=== PATIENT | female | born 1965 | race Caucasian/White ===

== ENCOUNTER 2017-08-28 01:47 | Emergency (ER) | payer OTHER ==
[~2017-08-28] VITALS: Ht 152.4 cm; Wt 48.0 kg
[~2017-08-28 01:47] MED LIST: ENTEX PO; LORT7.5T3 PO; PRED20 PO; ZITH250T PO
[2017-08-28 01:52] VITALS: BP 119/67; PULSE 107; RESP 18; TEMP 99; O2SAT 99
== END 2017-08-28 05:00 | disposition left against medical advice (07) ==
LOC: NED 01:47
DX: R10.9 Unspecified abdominal pain (principal)
CPT/HCPCS: 99281

== ENCOUNTER 2017-09-16 21:08 | Inpatient (IN) | payer BC, OTHER ==
[~2017-09-16] VITALS: Ht 152.4 cm; Wt 48.7 kg
[2017-09-16 21:15] VITALS: BP 104/51; PULSE 94; RESP 24; TEMP 100.3; O2SAT 98
[2017-09-16] MEDS ORDERED: METR250 PO (21:23)
[2017-09-16] MEDS ORDERED: LACTCAP8 PO (21:23)
--- NOTE | 2017-09-16 21:37 | PD ---
HPI Chief Complaint: GI Complaint Time Seen by Provider: 21:25 Travel History International Travel<30 days: No Contact w/Intl Traveler<30days: No Traveled to known affect area: No History of Present Illness HPI 51yo F here with persistent abdominal pain. Pt said she was at [facility] 3 weeks ago and she was diagnosed with diverticulitis. She was sent home with metronidazole. Pt was not able to tolerate it and keeps vomiting so went to PMD's office. Pt was told to cut metronidazole 500mg to 250mg and has been trying to take it last 3 days. However, she is still nauseous and vomiting. No documented fever but has chills. +Nonbloody diarrhea. Said it is just like water. Denies any chest pain, sob, dysuria, hematuria, focal weakness or numbness. Denies any abdominal surgeries. 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) Diverticulitis: Yes Tetanus Vaccination: < 5 Years Influenza Vaccination: No ?: Not LMP: 09/02/17 : 2 Para: 2 Ovarian Cysts: Yes Tubal Ligation: Yes Past Surgical History Tonsillectomy: Yes Social History Alcohol Use: No Tobacco Use: No Substance Use: No Allergies-Medications (Allergen,Severity, Reaction): Coded Allergies: No Known Allergies (Unverified , 09/16/17) Reported Meds & Prescriptions Reported Meds & Active Scripts Active Reported Probiotic (Lactobacillus Acidophilus) 10 Billion Cell Cap 1 Cap PO TIDAC Flagyl (Metronidazole) 250 Mg Tab 250 Mg PO TID Review of Systems Except as stated in HPI: all other systems reviewed are Neg Physical Exam Narrative GENERAL: 51yo F in moderate distress. SKIN: Focused skin assessment warm/dry. HEAD: Atraumatic. Normocephalic. EYES: Pupils equal and round. No scleral icterus. No injection or drainage. ENT: No nasal bleeding or discharge. Mucous membranes pink and moist. NECK: Trachea midline. No JVD. CARDIOVASCULAR: Regular rate and rhythm. No murmur appreciated. RESPIRATORY: No accessory muscle use. Clear to auscultation. Breath sounds equal bilaterally. GASTROINTESTINAL: Abdomen soft, +Tenderness diffusely. MUSCULOSKELETAL: No obvious deformities. No clubbing. No cyanosis. No edema. NEUROLOGICAL: Awake and alert. No obvious cranial nerve deficits. Motor grossly within normal limits. Normal speech. PSYCHIATRIC: Appropriate mood and affect; insight and judgment normal. Data Data Last Documented VS Vital Signs Date Time Temp Pulse Resp B/P (MAP) Pulse Ox O2 Delivery O2 Flow Rate FiO2 09/16/17 22:06 82 18 99/51 (67) 98 Room Air 09/16/17 21:15 100.3 Orders Orders Complete Blood Count With Diff (09/16/17 21:34) Comprehensive Metabolic Panel (09/16/17 21:34) Lipase (09/16/17 21:34) Urinalysis - C+S If Indicated (09/16/17 21:34) Ct Abd/Pel W Iv Contrast(Rout) (09/16/17 21:34) Morphine Inj (Morphine Inj) (09/16/17 21:45) Ondansetron Inj (Zofran Inj) (09/16/17 21:45) Ed Urine Pregnancytest Poc (09/16/17 21:34) Blood Culture (09/16/17 21:37) Lactic Acid Sepsis Protocol (09/16/17 21:37) Sodium Chlor 0.9% 1000 Ml Inj (Ns 1000 M (09/16/17 21:45) Iohexol 350 Inj (Omnipaque 350 Inj) (09/16/17 22:19) Urine Culture (09/16/17 21:50) Ceftriaxone Inj (Rocephin Inj) (09/16/17 22:45) Sodium Chlor 0.9% 1000 Ml Inj (Ns 1000 M (09/16/17 22:45) Labs Laboratory Tests Test 09/16/17 21:40 09/16/17 21:50 White Blood Count 17.2 TH/MM3 Red Blood Count 4.07 MIL/MM3 Hemoglobin 11.4 GM/DL Hematocrit 34.2 % Mean Corpuscular Volume 83.9 FL Mean Corpuscular Hemoglobin 28.0 PG Mean Corpuscular Hemoglobin Concent 33.4 % Red Cell Distribution Width 12.9 % Platelet Count 441 TH/MM3 Mean Platelet Volume 7.9 FL Neutrophils (%) (Auto) 78.3 % Lymphocytes (%) (Auto) 12.0 % Monocytes (%) (Auto) 8.6 % Eosinophils (%) (Auto) 0.4 % Basophils (%) (Auto) 0.7 % Neutrophils # (Auto) 13.4 TH/MM3 Lymphocytes # (Auto) 2.1 TH/MM3 Monocytes # (Auto) 1.5 TH/MM3 Eosinophils # (Auto) 0.1 TH/MM3 Basophils # (Auto) 0.1 TH/MM3 CBC Comment DIFF FINAL Differential Comment Blood Urea Nitrogen 11 MG/DL Creatinine 0.50 MG/DL Random Glucose 100 MG/DL Total Protein 7.7 GM/DL Albumin 2.9 GM/DL Calcium Level 8.5 MG/DL Alkaline Phosphatase 119 U/L Aspartate Amino Transf (AST/SGOT) 9 U/L Alanine Aminotransferase (ALT/SGPT) 7 U/L Total Bilirubin 0.3 MG/DL Sodium Level 134 MEQ/L Potassium Level 3.7 MEQ/L Chloride Level 99 MEQ/L Carbon Dioxide Level 26.4 MEQ/L Anion Gap 9 MEQ/L Estimat Glomerular Filtration Rate 131 ML/MIN Lactic Acid Level 0.9 mmol/L Lipase 132 U/L Urine Collection Type CLEAN CATCH Urine Color YELLOW Urine Turbidity SL CLOUDY Urine pH 6.0 Urine Specific [place] 1.025 Urine Protein NEG mg/dL Urine Glucose (UA) NEG mg/dL Urine Ketones 15 mg/dL Urine Occult Blood LARGE Urine Nitrite NEG Urine Bilirubin NEG Urine Urobilinogen 0.2 MG/DL Urine Leukocyte Esterase TRACE Urine RBC 4-9 /hpf Urine WBC 3-5 /hpf Urine WBC Clumps OCC Urine Squamous Epithelial Cells 0-5 /hpf Urine Bacteria OCC /hpf Urine Mucus MOD /lpf Microscopic Urinalysis Comment CULTURE INDICATED MDM Medical Decision Making Medical Screen Exam Complete: Yes Emergency Medical Condition: Yes Differential Diagnosis Diverticulitis vs. abscess vs. perforation vs. UTI Narrative Course 51yo F with lower abdominal pain and nausea and vomiting. Temp is 100.3F here with HR of 94bpm. Labs reviewed, leukocytosis at 17.2. Lactic acid normal at 0.9. CMP unremarkable. Lipase normal. UA showed large blood. Occasional WBC clumps, culture indicated. CT a/p showed moderate solid stool. No free air, free fluid or abscess. Multiple diverticuli without diverticulitis. Pt given ceftriaxone, NS IVF, morphine and zofran. Pt reevaluated at bedside and pain has improved. Still very tender in suprapubic region. Discussed with Dr. Sutherland and accepted to her service. Diagnosis Primary Impression: UTI (urinary tract infection) Qualified Codes: N39.0 - Urinary tract infection, site not specified; R31.9 - Hematuria, unspecified Admitting Information Admitting Physician Requests: it Petra Arriaga DO Sep 16, 2017 21:37
[2017-09-16] MEDS ORDERED: ONDANSETRON HCL 4 MG/2 ML VIAL IVP ONE (21:45)
[2017-09-16] MEDS ORDERED: MORPHINE SULFATE 4 MG/ML INJ IV PUSH ONE (21:45)
[2017-09-16] MEDS ORDERED: SODIUM CHLOR 0.9% 1000 ML INJ 1,000 ML IV ONE ×2 (21:45→22:45)
[2017-09-16 22:02] LABS: AUTOMATED NEUTROPHIL # 13.4 TH/MM3 (1.8-7.7); BASOPHIL # 0.1 TH/MM3 (0-0.2); BASOPHIL % 0.7 % (0.0-2.0); EOSINOPHIL # 0.1 TH/MM3 (0-0.4); EOSINOPHIL % 0.4 % (0.0-4.0); HEMATOCRIT 34.2 % (35.0-46.0); HEMOGLOBIN 11.4 GM/DL (11.6-15.3); LYMPHOCYTE # 2.1 TH/MM3 (1.0-4.8); MEAN CELL VOLUME 83.9 FL (80.0-100.0); MEAN CORPUSCULAR HGB CONC 33.4 % (32.0-36.0); MEAN PLATELET VOLUME 7.9 FL (7.0-11.0); MONO % 8.6 % (0.0-8.0); MONOCYTE # 1.5 TH/MM3 (0-0.9); NEUT % 78.3 % (16.0-70.0); PLATELET COUNT 441 TH/MM3 (150-450); RED BLOOD COUNT 4.07 MIL/MM3 (4.00-5.30); RED CELL DISTRIBUTION WIDTH 12.9 % (11.6-17.2); WHITE BLOOD COUNT 17.2 TH/MM3 (4.0-11.0)
[2017-09-16 22:06] VITALS: BP 99/51; PULSE 82; RESP 18; O2SAT 98
[2017-09-16 22:14] LABS: BILIRUBIN, URINE NEG (NEG); BLOOD, URINE LARGE (NEG); GLUCOSE,URINE NEG (NEG); KETONE, URINE 15 mg/dL (NEG); NITRITE,URINE NEG (NEG); URINE COLOR YELLOW (YELLW/STRAW); URINE LEUKOCYTE ESTERASE TRACE (NEG)
[2017-09-16 22:16] LABS: CHLORIDE 99 MEQ/L (98-107); SODIUM (NA) 134 MEQ/L (136-145)
[2017-09-16 22:18] LABS: ALBUMIN 2.9 GM/DL (3.4-5.0); CALCIUM 8.5 MG/DL (8.5-10.1)
[2017-09-16 22:19] LABS: BICARBONATE 26.4 MEQ/L (21.0-32.0); BLOOD UREA NITROGEN 11 MG/DL (7-18); GLUCOSE,RANDOM 100 MG/DL (74-106)
[2017-09-16] MEDS ORDERED: IOHEXOL 350 MG/ML 10 ML VIAL (for RAD DIAG) IVCONTRAST ONE (22:19)
[2017-09-16 22:22] LABS: ALT (GPT) 7 U/L (10-53); AST (GOT) 9 U/L (15-37); GLOMERULAR FILTRATION RATE 131 ML/MIN (>89)
[2017-09-16 22:23] LABS: TOTAL BILIRUBIN ADULT 0.3 MG/DL (0.2-1.0); TOTAL PROTEIN 7.7 GM/DL (6.4-8.2)
[2017-09-16 22:25] LABS: ALKALINE PHOSPHATASE 119 U/L (45-117)
[2017-09-16 22:26] LABS: MUCUS URINE MOD /lpf (OCC); SQUAMOUS EPITHELIAL CELL URINE 0-5 /hpf (0-5)
[2017-09-16 22:27] LABS: BACTERIA, URINE OCC /hpf
[2017-09-16 22:29] LABS: WHITE BLOOD CELL CLUMPS OCC
--- NOTE | 2017-09-16 22:31 | RADRPT ---
EXAM DATE/TIME: 09/16/2017 22:13 [place] COMPARISON: No previous studies available for comparison. INDICATIONS : Bilateral lower quadrant pain. IV CONTRAST: 100 cc Omnipaque 350 (iohexol) IV ORAL CONTRAST: No oral contrast ingested. RADIATION DOSE: 4.55 CTDIvol (mGy) MEDICAL HISTORY : Diverticulitis. SURGICAL HISTORY : Tubal ligation. ENCOUNTER: Initial ACUITY: 1 day PAIN SCALE: 10/10 LOCATION: Bilateral lower quadrant TECHNIQUE: Volumetric scanning of the abdomen and pelvis was performed. Using automated exposure control and ad justment of the mA and/or kV according to patient size, radiation dose was kept as low as reasonably achievable to obtain optimal diagnostic quality images. DICOM format image data is available electro nically for review and comparison. FINDINGS: Lower lungs are clear 8 mm cyst dome of the liver Minimal diffuse inhomogeneous adjacent of fat in falciform ligament, probably focal fatty sparing The spleen, pancreas and adrenal glands are unremarkable Symmetric renal function no renal mass Large amount of stool is seen throughout the cecum, ascending, transverse and descending colon. In the pelvis liquid stool is seen in the rectum. There is small bowel loops in the pelvis of uncert ain significance. There multiple diverticuli in the sigmoid colon without diverticulitis There is no free air or obstruction. Review of bone windows reveals only mild degenerative changes. CONCLUSION: Moderate solid stool throughout the ascending and descending colon Liquid stool in the rectum with matted small bowel loops in the pelvis associated with diverticuliti in the sigmoid colon. Don't see free air, free fluid or abscess. Rogelio Reilly MD FACR on September 16, 2017 at 22:24 Board Certified Radiologist. This report was verified electronically.
[2017-09-16] MEDS ORDERED: MAGNESIUM HYDROXIDE SUSP 30 ML CUP PO PRN (22:45)
[2017-09-16] MEDS ORDERED: ACETAMINOPHEN/HYDROcodone 325 MG/5 MG TAB PO PRN (22:45)
[2017-09-16] MEDS ORDERED: ONDANSETRON HCL 4 MG/2 ML VIAL IVP PRN (22:45)
[2017-09-16] MEDS ORDERED: LACTULOSE SYRUP 20 GM/30 ML CUP PO PRN (22:45)
[2017-09-16] MEDS ORDERED: BISACODYL 10 MG SUPP RECTAL PRN (22:45)
[2017-09-16] MEDS ORDERED: ACETAMINOPHEN 325 MG TAB PO PRN (22:45)
[2017-09-16] MEDS ORDERED: SENNOSIDES 8.6 MG TAB PO PRN (22:45)
[2017-09-16] MEDS ORDERED: cefTRIAXone INJ 1,000 MG in SODIUM CHLORIDE 0.9% INJ 100 ML IV ONE (22:45)
[2017-09-16] MEDS ORDERED: SODIUM CHLORIDE 0.9% FLUSH 10 ML FLUSH IV FLUSH PRN (22:45)
[2017-09-17] VITALS (7 sets, daily range): BP systolic 88–99; BP diastolic 53–62; PULSE 62–80; RESP 14–20; TEMP 96.2–98.6; O2SAT 95–99
[2017-09-17] MEDS: SODIUM CHLOR 0.9% 1000 ML INJ 1,000 ML IV SCH ×3 (00:33→18:23)
[2017-09-17] MEDS: MORPHINE SULFATE 2 MG/ML INJ IV PUSH PRN ×2 (01:41→07:43)
[2017-09-17] MEDS: PIPERACIL-TAZO 4.5 GM PREMIX 100 ML IV SCH ×3 (06:07→18:04)
[2017-09-17 06:29] LABS: AUTOMATED NEUTROPHIL # 12.1 TH/MM3 (1.8-7.7); BASOPHIL # 0.1 TH/MM3 (0-0.2); BASOPHIL % 0.4 % (0.0-2.0); EOSINOPHIL # 0.1 TH/MM3 (0-0.4); EOSINOPHIL % 0.5 % (0.0-4.0); HEMATOCRIT 29.1 % (35.0-46.0); HEMOGLOBIN 9.6 GM/DL (11.6-15.3); LYMPH % 11.6 % (9.0-44.0); LYMPHOCYTE # 1.8 TH/MM3 (1.0-4.8); MEAN CELL VOLUME 82.9 FL (80.0-100.0); MEAN CORPUSCULAR HEMOGLOBIN 27.3 PG (27.0-34.0); MEAN CORPUSCULAR HGB CONC 32.9 % (32.0-36.0); MONO % 9.9 % (0.0-8.0); MONOCYTE # 1.6 TH/MM3 (0-0.9); NEUT % 77.6 % (16.0-70.0); PLATELET COUNT 382 TH/MM3 (150-450); RED BLOOD COUNT 3.51 MIL/MM3 (4.00-5.30); RED CELL DISTRIBUTION WIDTH 13.2 % (11.6-17.2); WHITE BLOOD COUNT 15.7 TH/MM3 (4.0-11.0)
[2017-09-17 06:41] LABS: CHLORIDE 104 MEQ/L (98-107); SODIUM (NA) 136 MEQ/L (136-145)
[2017-09-17 07:13] LABS: ALBUMIN 2.2 GM/DL (3.4-5.0); ALKALINE PHOSPHATASE 77 U/L (45-117); ALT (GPT) LESS THAN 6 U/L (10-53); AST (GOT) 7 U/L (15-37); BICARBONATE 24.4 MEQ/L (21.0-32.0); BLOOD UREA NITROGEN 7 MG/DL (7-18); CALCIUM 7.4 MG/DL (8.5-10.1); CALCIUM-PROTEIN CORRECTED 8.1 MG/DL (8.5-10.1); CREATININE 0.36 MG/DL (0.50-1.00); GLOMERULAR FILTRATION RATE 191 ML/MIN (>89); GLUCOSE,RANDOM 98 MG/DL (74-106); TOTAL BILIRUBIN ADULT 0.2 MG/DL (0.2-1.0); TOTAL PROTEIN 5.8 GM/DL (6.4-8.2)
[2017-09-17] MEDS: DOCUSATE SODIUM 50 MG/SENNA 8.6 MG TAB PO SCH ×2 (08:57→21:00)
[2017-09-17] MEDS: SODIUM CHLORIDE 0.9% FLUSH 10 ML FLUSH IV FLUSH SCH ×2 (09:00→22:02)
--- NOTE | 2017-09-17 09:47 | HHI.HP ---
HPI Service [facility] Primary Care Physician Rodríguez Davis D.O. Admission Diagnosis UTI Diagnoses: (1) Leucocytosis Diagnosis: Principal (2) Urinary tract infection Diagnosis: Principal (3) Diarrhea in adult patient Diagnosis: Principal Chief Complaint: Nausea, vomiting, diarrhea Travel History International Travel<30 Days: No Contact w/Intl Traveler <30 Da: No Traveled to Known Affected Are: No Sepsis Criteria SIRS Criteria (2 or more): WBC > 97592, < 4000 or > 10% bands History of Present Illness 51-year-old female with no chronic medical illnesses who presented to the hospital for evaluation of 2 day history of nausea, vomiting, diarrhea, abdominal pain. Patient states that 2 weeks ago she went to [facility] and was diagnosed with diverticulitis and was treated with Flagyl. Patient takes medication as directed, however 2 days ago she started developing nausea with vomiting. She had diarrhea with watery stool and now green coloration. She states that her abdominal pain has significantly worse that forced her to come to the ER for evaluation. Patient had workup done in emergency department found to have signs of dehydration, leukocytosis, urinary tract infection. Because of those reasons it was recommended that the patient be admitted for further evaluation and management. Upon evaluating patient she is lying in bed comfortably. Does have lower abdominal tenderness. She indicates that she continues to have diarrhea up to 10 times a day which was watery and now has turned a green color. Review of Systems Gastrointestinal: COMPLAINS OF: Abdominal pain, Diarrhea, Nausea, Vomiting Except as stated in HPI: all other systems reviewed are Neg Past Family Social History Past Medical History No chronic medical illnesses Past Surgical History Tonsillectomy Tubal ligation Reported Medications Reported Meds & Active Scripts Active Reported Probiotic (Lactobacillus Acidophilus) 10 Billion Cell Cap 1 Cap PO TIDAC Flagyl (Metronidazole) 250 Mg Tab 250 Mg PO TID Allergies: Coded Allergies: No Known Allergies (Unverified , 09/16/17) Family History Reviewed and unremarkable for any heart disease, lung disease, kidney disease, cancer, seizures, stroke Social History Patient denies any tobacco, alcohol or illicit drug Physical Exam Vital Signs Vital Signs Date Time Temp Pulse Resp B/P (MAP) Pulse Ox O2 Delivery O2 Flow Rate FiO2 09/17/17 08:30 97.6 64 16 88/54 (65) 96 09/17/17 08:25 09/17/17 07:15 78 14 99/60 (73) 95 Room Air 09/17/17 05:55 98.6 80 16 90/53 (65) 96 Room Air 09/17/17 01:35 98.4 78 16 96/54 (68) 96 Room Air 09/16/17 22:06 82 18 99/51 (67) 98 Room Air 09/16/17 21:15 100.3 94 24 104/51 (68) 98 Physical Exam GENERAL: Well-developed, well-nourished, in no acute distress. alert and orientated HEENT: Head is normocephalic without any lesions or masses noted. Facial features are symmetric. Eyes: Pupils equal round reactive to light. Extraocular muscles are intact. Conjunctivae were clear. Oropharyngeal: Pharynx without any erythema edema. Tongue is midline without deviation. Buccal mucosa is moist without any masses or lesions NECK: Supple without any masses. Trachea midline no deviation. No JVD, no bruits are appreciated CARDIAC: Regular rhythm, regular rate. S1/S2 are heard. No murmurs gallops or rubs. LUNGS: Clear to auscultation bilaterally. No wheeze, rhonchi or rales. No use of accessory muscles on inspiration or expiration. ABDOMEN: Soft, bilateral lower abdominal pain, suprapubic pain nondistended. Bowel sounds heard in all 4 quadrants. No organomegaly or masses. Negative rebound, negative guarding EXTREMITIES: No edema, pulses are equal bilaterally. No cyanosis or clubbing NEUROLOGY: Mood and affect appear appropriate. Cranial nerves II through XII grossly intact. Muscle strength 5/5 in upper and lower extremities bilaterally. Deep tendon reflexes are 2+ in upper and lower extremities bilaterally. Laboratory Laboratory Tests Test 09/16/17 21:40 09/16/17 21:50 09/17/17 05:58 White Blood Count 17.2 15.7 Red Blood Count 4.07 3.51 Hemoglobin 11.4 9.6 Hematocrit 34.2 29.1 Mean Corpuscular Volume 83.9 82.9 Mean Corpuscular Hemoglobin 28.0 27.3 Mean Corpuscular Hemoglobin Concent 33.4 32.9 Red Cell Distribution Width 12.9 13.2 Platelet Count 441 382 Mean Platelet Volume 7.9 8.0 Neutrophils (%) (Auto) 78.3 77.6 Lymphocytes (%) (Auto) 12.0 11.6 Monocytes (%) (Auto) 8.6 9.9 Eosinophils (%) (Auto) 0.4 0.5 Basophils (%) (Auto) 0.7 0.4 Neutrophils # (Auto) 13.4 12.1 Lymphocytes # (Auto) 2.1 1.8 Monocytes # (Auto) 1.5 1.6 Eosinophils # (Auto) 0.1 0.1 Basophils # (Auto) 0.1 0.1 CBC Comment DIFF FINAL DIFF FINAL Differential Comment Blood Urea Nitrogen 11 7 Creatinine 0.50 0.36 Random Glucose 100 98 Total Protein 7.7 5.8 Albumin 2.9 2.2 Calcium Level 8.5 7.4 Alkaline Phosphatase 119 77 Aspartate Amino Transf (AST/SGOT) 9 7 Alanine Aminotransferase (ALT/SGPT) 7 LESS THAN 6 Total Bilirubin 0.3 0.2 Sodium Level 134 136 Potassium Level 3.7 3.6 Chloride Level 99 104 Carbon Dioxide Level 26.4 24.4 Anion Gap 9 8 Estimat Glomerular Filtration Rate 131 191 Lactic Acid Level 0.9 Lipase 132 Urine Collection Type CLEAN CATCH Urine Color YELLOW Urine Turbidity SL CLOUDY Urine pH 6.0 Urine Specific [place] 1.025 Urine Protein NEG Urine Glucose (UA) NEG Urine Ketones 15 Urine Occult Blood LARGE Urine Nitrite NEG Urine Bilirubin NEG Urine Urobilinogen 0.2 Urine Leukocyte Esterase TRACE Urine RBC 4-9 Urine WBC 3-5 Urine WBC Clumps OCC Urine Squamous Epithelial Cells 0-5 Urine Bacteria OCC Urine Mucus MOD Microscopic Urinalysis Comment CULTURE INDICATED Protein Corrected Calcium 8.1 Date/Time Source Procedure Growth Status 09/16/17 21:45 Blood Peripheral Aerobic Blood Culture Pending Received 09/16/17 21:45 Blood Peripheral Anaerobic Blood Culture Pending Received 09/16/17 21:50 Urine Clean Catch Urine Culture Pending Received Result Diagram: 09/17/17 0558 09/17/17 0558 Caprini VTE Risk Assessment Caprini VTE Risk Assessment: No/Low Risk (score <= 1) Caprini Risk Assessment Model Point Value = 1 Point Value = 2 Point Value = 3 Point Value = 5 Age 41-60 Minor surgery BMI > 25 kg/m2 Swollen legs Varicose veins or History of unexplained or recurrent spontaneous Oral contraceptives or hormone replacement Sepsis (< 1 month) Serious lung disease, including pneumonia (< 1 month) Abnormal pulmonary function Acute myocardial infarction Congestive heart failure (< 1 month) History of inflammatory bowel disease Medical patient at bed rest Age 61-74 Arthroscopic surgery Major open surgery (> 45 min) Laparoscopic surgery (> 45 min) Malignancy Confined to bed (> 72 hours) Immobilizing plaster cast Central venous access Age >= 75 History of VTE Family history of VTE Factor V Leiden Prothrombin [id number] Lupus anticoagulant Anticardiolipin antibodies Elevated serum homocysteine Heparin-induced thrombocytopenia Other congenital or acquired thrombophilia Stroke (< 1 month) Elective arthroplasty Hip, pelvis, or leg fracture Acute spinal cord injury (< 1 month) Prophylaxis Regimen Total Risk Factor Score Risk Level Prophylaxis Regimen 0-1 Low Early ambulation 2 Moderate Order ONE of the following: *Sequential Compression Device (SCD) *Heparin 5000 units SQ BID 3-4 Higher Order ONE of the following medications: *Heparin 5000 units SQ TID *Enoxaparin/Lovenox 40 mg SQ daily (WT < 150 kg, CrCl > 30 mL/min) *Enoxaparin/Lovenox 30 mg SQ daily (WT < 150 kg, CrCl > 10-29 mL/min) *Enoxaparin/Lovenox 30 mg SQ BID (WT < 150 kg, CrCl > 30 mL/min) AND/OR *Sequential Compression Device (SCD) 5 or more Highest Order ONE of the following medications: *Heparin 5000 units SQ TID (Preferred with Epidurals) *Enoxaparin/Lovenox 40 mg SQ daily (WT < 150 kg, CrCl > 30 mL/min) *Enoxaparin/Lovenox 30 mg SQ daily (WT < 150 kg, CrCl > 10-29 mL/min) *Enoxaparin/Lovenox 30 mg SQ BID (WT < 150 kg, CrCl > 30 mL/min) AND *Sequential Compression Device (SCD) Assessment and Plan Assessment and Plan Gastroenteritis Patient with presenting nausea, vomiting, worsening diarrhea with abdominal pain Possibly could be partially secondary to p.o. Flagyl. However workup still needs to be performed to evaluate other causes Continue IV fluids Obtain stool studies, C. difficile, enteric pathogen, rotavirus, WBC Urinary tract infection Urinalysis does indicate a trace of leukocytes, trace bacteria, however does have 0-5 epithelial cells which could indicate contamination Continue antibiotics until culture reports can be obtained for appropriate antibiotics Leukocytosis Could be reactive versus secondary to infection Continue monitor CBC Acute anemia Hemoglobin dropped from 11.4--> 9.6 Likely secondary to concentration from dehydration Continue monitor hemoglobin and hematocrit DVT prevention Low risk, early ambulation Physician Certification 2 Midnight Certification Type: Admission for Inpatient Services Order for Inpatient Services The services are ordered in accordance with Medicare regulations or non- Medicare payer requirements, as applicable. In the case of services not specified as inpatient-only, they are appropriately provided as inpatient services in accordance with the 2-midnight benchmark. Estimated LOS (days): 2 days is the estimated time the patient will need to remain in the hospital, assuming treatment plan goals are met and no additional complications. Post-Hospital Plan: Not yet determined Vernon Barker Sep 17, 2017 09:47
[2017-09-17] MEDS ORDERED: ACETAMINOPHEN/HYDROcodone 325 MG/5 MG TAB PO PRN (10:00)
[2017-09-17] MEDS ORDERED: MORPHINE SULFATE 2 MG/ML INJ IV PUSH PRN (10:00)
[2017-09-17] MEDS: ACETAMINOPHEN/HYDROcodone 325 MG/7.5 MG TAB PO PRN ×2 (16:16→22:10)
[2017-09-18] VITALS: BP 100/58; PULSE 63; RESP 20; TEMP 97.2; O2SAT 97
[2017-09-18] MEDS: PIPERACIL-TAZO 4.5 GM PREMIX 100 ML IV SCH ×2 (00:38→05:47)
[2017-09-18] MEDS: SODIUM CHLOR 0.9% 1000 ML INJ 1,000 ML IV SCH (00:40)
[2017-09-18 04:00] VITALS: BP 109/60; PULSE 65; RESP 18; TEMP 97.7; O2SAT 96
[2017-09-18 06:38] LABS: AUTOMATED NEUTROPHIL # 6.2 TH/MM3 (1.8-7.7); BASOPHIL # 0.1 TH/MM3 (0-0.2); BASOPHIL % 0.7 % (0.0-2.0); EOSINOPHIL # 0.1 TH/MM3 (0-0.4); EOSINOPHIL % 1.6 % (0.0-4.0); HEMATOCRIT 30.4 % (35.0-46.0); LYMPH % 17.2 % (9.0-44.0); LYMPHOCYTE # 1.4 TH/MM3 (1.0-4.8); MEAN CELL VOLUME 85.1 FL (80.0-100.0); MEAN CORPUSCULAR HGB CONC 32.9 % (32.0-36.0); MEAN PLATELET VOLUME 8.1 FL (7.0-11.0); MONO % 5.9 % (0.0-8.0); MONOCYTE # 0.5 TH/MM3 (0-0.9); NEUT % 74.6 % (16.0-70.0); PLATELET COUNT 372 TH/MM3 (150-450); RED BLOOD COUNT 3.58 MIL/MM3 (4.00-5.30); RED CELL DISTRIBUTION WIDTH 12.9 % (11.6-17.2); WHITE BLOOD COUNT 8.3 TH/MM3 (4.0-11.0)
[2017-09-18 06:53] LABS: CHLORIDE 104 MEQ/L (98-107); SODIUM (NA) 139 MEQ/L (136-145)
[2017-09-18 07:00] LABS: ALBUMIN 2.3 GM/DL (3.4-5.0); BICARBONATE 28.2 MEQ/L (21.0-32.0); BLOOD UREA NITROGEN 6 MG/DL (7-18); GLUCOSE,RANDOM 81 MG/DL (74-106); MAGNESIUM 2.2 MG/DL (1.5-2.5)
[2017-09-18 07:02] LABS: ALT (GPT) 7 U/L (10-53); AST (GOT) 7 U/L (15-37)
[2017-09-18 07:03] LABS: CREATININE 0.57 MG/DL (0.50-1.00); GLOMERULAR FILTRATION RATE 112 ML/MIN (>89)
[2017-09-18 07:04] LABS: TOTAL BILIRUBIN ADULT 0.2 MG/DL (0.2-1.0); TOTAL PROTEIN 6.4 GM/DL (6.4-8.2)
[2017-09-18 07:05] LABS: ALKALINE PHOSPHATASE 78 U/L (45-117)
[2017-09-18 08:00] VITALS: BP 101/65; PULSE 70; RESP 16; TEMP 99; O2SAT 98
[2017-09-18] MEDS: SODIUM CHLORIDE 0.9% FLUSH 10 ML FLUSH IV FLUSH SCH (09:00)
[2017-09-18] MEDS: DOCUSATE SODIUM 50 MG/SENNA 8.6 MG TAB PO SCH (09:00)
--- NOTE | 2017-09-18 09:52 | HHI.DCPOC ---
Discharge Care Plan Diagnosis: (1) Leucocytosis (2) Diarrhea in adult patient (3) Urinary tract infection Goals to Promote Your Health * To prevent worsening of your condition and complications * To maintain your health at the optimal level Directions to Meet Your Goals Take your medications as prescribed Follow your dietary instruction Follow activity as directed Keep your appointments as scheduled Take your immunizations and boosters as scheduled If your symptoms worsen call your PCP, if no PCP go to Urgent Care Center or Emergency Room Smoking is Dangerous to Your Health. Avoid second hand smoke Call the 24-hour hour crisis hotline for domestic abuse at Vernon Barker Sep 18, 2017 09:52
--- NOTE | 2017-09-18 09:56 | HHI.DS ---
Discharge Summary Admission Date Sep 16, 2017 at 22:50 Discharge Date: Sep 18, 2017 Admitting Diagnosis UTI (1) Leucocytosis ICD Code: D72.829 - Elevated white blood cell count, unspecified Diagnosis: Principal (2) Urinary tract infection ICD Code: N39.0 - Urinary tract infection, site not specified Diagnosis: Principal (3) Diarrhea in adult patient ICD Code: R19.7 - Diarrhea, unspecified Diagnosis: Principal Procedures None Brief History - From Admission 51-year-old female with no chronic medical illnesses who presented to the hospital for evaluation of 2 day history of nausea, vomiting, diarrhea, abdominal pain. Patient states that 2 weeks ago she went to [facility] and was diagnosed with diverticulitis and was treated with Flagyl. Patient takes medication as directed, however 2 days ago she started developing nausea with vomiting. She had diarrhea with watery stool and now green coloration. She states that her abdominal pain has significantly worse that forced her to come to the ER for evaluation. Patient had workup done in emergency department found to have signs of dehydration, leukocytosis, urinary tract infection. Because of those reasons it was recommended that the patient be admitted for further evaluation and management. Upon evaluating patient she is lying in bed comfortably. Does have lower abdominal tenderness. She indicates that she continues to have diarrhea up to 10 times a day which was watery and now has turned a green color. CBC/BMP: 09/18/17 0510 09/18/17 0510 Significant Findings Laboratory Tests Test 09/16/17 21:40 09/16/17 21:50 09/17/17 05:58 09/17/17 15:39 White Blood Count 17.2 TH/MM3 (4.0-11.0) 15.7 TH/MM3 (4.0-11.0) Hemoglobin 11.4 GM/DL (11.6-15.3) 9.6 GM/DL (11.6-15.3) Hematocrit 34.2 % (35.0-46.0) 29.1 % (35.0-46.0) Neutrophils (%) (Auto) 78.3 % (16.0-70.0) 77.6 % (16.0-70.0) Monocytes (%) (Auto) 8.6 % (0.0-8.0) 9.9 % (0.0-8.0) Neutrophils # (Auto) 13.4 TH/MM3 (1.8-7.7) 12.1 TH/MM3 (1.8-7.7) Monocytes # (Auto) 1.5 TH/MM3 (0-0.9) 1.6 TH/MM3 (0-0.9) Albumin 2.9 GM/DL (3.4-5.0) 2.2 GM/DL (3.4-5.0) Alkaline Phosphatase 119 U/L (45-117) Aspartate Amino Transf (AST/SGOT) 9 U/L (15-37) 7 U/L (15-37) Alanine Aminotransferase (ALT/SGPT) 7 U/L (10-53) LESS THAN 6 U/L (10-53) Sodium Level 134 MEQ/L (136-145) Urine Ketones 15 mg/dL (NEG) Urine Occult Blood LARGE (NEG) Urine Leukocyte Esterase TRACE (NEG) Urine RBC 4-9 /hpf (0-3) Urine WBC Clumps OCC (NONE) Urine Bacteria OCC /hpf (NONE) Urine Mucus MOD /lpf (OCC) Red Blood Count 3.51 MIL/MM3 (4.00-5.30) Creatinine 0.36 MG/DL (0.50-1.00) Total Protein 5.8 GM/DL (6.4-8.2) Calcium Level 7.4 MG/DL (8.5-10.1) Protein Corrected Calcium 8.1 MG/DL (8.5-10.1) Test 09/18/17 05:10 Red Blood Count 3.58 MIL/MM3 (4.00-5.30) Hemoglobin 10.0 GM/DL (11.6-15.3) Hematocrit 30.4 % (35.0-46.0) Neutrophils (%) (Auto) 74.6 % (16.0-70.0) Blood Urea Nitrogen 6 MG/DL (7-18) Albumin 2.3 GM/DL (3.4-5.0) Calcium Level 8.0 MG/DL (8.5-10.1) Aspartate Amino Transf (AST/SGOT) 7 U/L (15-37) Alanine Aminotransferase (ALT/SGPT) 7 U/L (10-53) Imaging Last Impressions Abdomen/Pelvis CT 09/16/172133 Signed Impressions: Service Date/Time: Saturday, September 16, 2017 22:13 - CONCLUSION: Moderate solid stool throughout the ascending and descending colon Liquid stool in the rectum with matted small bowel loops in the pelvis associated with diverticuliti in the sigmoid colon. Don't see free air, free fluid or abscess. Rogelio Reilly MD FACR PE at Discharge GENERAL: Well-developed, well-nourished, in no acute distress. alert and orientated HEENT: Head is normocephalic without any lesions or masses noted. Facial features are symmetric. Eyes: Extraocular muscles are intact. Conjunctivae were clear. NECK: Supple without any masses. Trachea midline no deviation. No JVD, CARDIAC: Regular rhythm, regular rate. S1/S2 are heard. No murmurs gallops or rubs. LUNGS: Clear to auscultation bilaterally. No wheeze, rhonchi or rales. No use of accessory muscles on inspiration or expiration. ABDOMEN: Soft, nontender. Nondistended. Bowel sounds heard in all 4 quadrants. No organomegaly or masses. Negative rebound, negative guarding EXTREMITIES: No edema, pulses are equal bilaterally. No cyanosis or clubbing NEUROLOGY: Mood and affect appear appropriate. Cranial nerves II through XII grossly intact. Moving all extremities, speech is clear Hospital Course 51-year-old female who originally presented to the hospital because of lower abdominal pain had workup done emergency department found to have leukocytosis, urinary tract infection. Patient recently was treated for diverticulitis with Flagyl and since taking medication she had had increased nausea, vomiting, decreased appetite, continued diarrhea. Because of that reason she came to emergency department for evaluation. Patient found to have an abnormal urinalysis with leukocytosis and it was recommended by the ER physician that the patient be admitted to the hospital for further evaluation. Patient was admitted with IV fluids, Rocephin. Cultures were ascertained. Stool cultures were unremarkable. C. difficile culture was negative. Urine culture showed no growth for 24 hours. Patient's leukocytosis resolved after IV hydration. Appears patient had episode of gastroenteritis with mild dehydration. Patient is clinically improved today and eager to go home. Patient is clinically stable. We will plan discharge accordingly. Pt Condition on Discharge: Stable Discharge Disposition: Discharge Home Discharge Time: > 30 minutes Discharge Instructions DIET: Follow Instructions for: As Tolerated, No Restrictions Activities you can perform: Regular-No Restrictions Follow up Referrals: PCP Follow-up - 1 Week Continued Medications: Lactobacillus Acidophilus (Probiotic) 10 Billion Cell Cap 1 CAP PO TIDAC for Nutritional Supplement, #90 CAP 0 Refills Discontinued Medications: Metronidazole (Flagyl) 250 Mg Tab 250 MG PO TID for Infection, TAB 0 Refills Vernon Barker Sep 18, 2017 09:56
== END 2017-09-18 12:34 | disposition home or self-care (01) | DRG 392 ==
LOC: PHED 21:08 → PHEDA 22:50 → PHEDH 09-17 02:49 → PH3A 09-17 08:21
PROVIDERS: ADMIT Hospitalist; ATTEND Hospitalist
DX: K52.9 Noninfective gastroenteritis and colitis, unspecified (principal); E86.0 Dehydration; R82.99 Other abnormal findings in urine; K57.30 Diverticulosis of large intestine without perforation or abscess without bleeding; D72.829 Elevated white blood cell count, unspecified; D64.9 Anemia, unspecified
CPT/HCPCS: 74177; 80053; 81001; 83605; 83690; 83735; 84703; 85025; 87040; 87086; 87205; 87425; 87493; 87506; 96361; 96374; 96375; J0696; J2270; J2405; J2543; J7030; Q9967